=== PATIENT | female | born 1990 | race Caucasian/White ===

== ENCOUNTER 2016-09-09 12:53 | Emergency (ER) | payer OTHER, MEDICAID ==
[2016-09-09 13:06] VITALS: BP 140/86; PULSE 82; RESP 18; TEMP 97.2; O2SAT 97
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
== END 2016-09-09 14:56 | disposition home or self-care (01) ==
DX: S09.90XA Unspecified injury of head, initial encounter (principal); V49.40XA Driver injured in collision with unspecified motor vehicles in traffic accident, initial encounter; Y92.410 Unspecified street and highway as the place of occurrence of the external cause; Y99.8 Other external cause status; Y93.89 Activity, other specified

== ENCOUNTER 2018-05-08 08:21 | Emergency (ER) | payer MEDICAID, OTHER ==
[2018-05-08 08:27] VITALS: BP 106/70
--- NOTE | 2018-05-08 08:49 | EDPHY ---
H & P Stated Complaint: Injury to left knee. Time Seen by Provider: 05/08/18 08:28 HPI/ROS: Chief Complaint: Left knee injury HPI: The patient presents to the ED with complaints of left knee pain following a twisting injury playing Frisbee yesterday. The patient reports painful ambulation. She has tenderness along the medial aspect of her knee. She also has mild swelling involving the knee joint. The patient denies any additional injury to the left hip, ankle or foot. She denies additional acute complaints. REVIEW OF SYSTEMS: Neuro: [no headache, numbness, weakness] Musculoskeletal: [as above] Skin: [no abrasion or lacerations] Source: Patient - Personal History LMP (Females 10-55): 22-28 Days Ago Current Tetanus Diphtheria and Acellular Pertussis (TDAP): Yes - Medical/Surgical History Hx Asthma: No Hx Chronic Respiratory Disease: No Hx Diabetes: No Hx Cardiac Disease: No Hx Renal Disease: No Hx Cirrhosis: No Hx Alcoholism: No Hx HIV/AIDS: No Hx Splenectomy or Spleen Trauma: No Other PMH: neg - Social History Smoking Status: Never smoked - Physical Exam Exam: Left knee: Tenderness to palpation along the medial collateral ligament, joint effusion is in noted. No significant laxity appreciated with anterior posterior drawer testing. Mild pain in the joint with axial rotation of the lower leg. Neuro: Sensation intact to light touch. Normal motor function noted in the left foot. Vascular: 2+ dorsalis pedis and posterior tibial pulses Skin: No abrasion or laceration Constitutional: Initial Vital Signs Temperature (C) 36.6 C 05/08/18 08:24 Heart Rate 89 05/08/18 08:24 Respiratory Rate 16 05/08/18 08:24 Blood Pressure 106/70 05/08/18 08:24 O2 Sat (%) 98 05/08/18 08:24 O2 Delivery Mode Room Air Allergies/Adverse Reactions: amoxicillin Allergy (Verified 09/09/16 13:02) Home Medications: Medication Instructions Recorded [facility] 09/09/16 Medical Decision Making - Diagnostics Imaging Results: Left knee x-ray: Images reviewed by myself, five views reviewed: Impression negative for acute fracture. Joint effusion present ED Course/Re-evaluation: The patient presents to the ED with a left knee injury without evidence of obvious fracture. She does have clinical evidence of a medial collateral ligament injury. She is also informed that we have not fully exclude the possibility of an intra-articular ligamentous or meniscal injury. The patient will be placed in a knee immobilizer. She is advised to weight bear as tolerated. Ice, elevation and NSAIDs are recommended. The patient will follow up with Orthopedic surgery for recheck next week to determine if additional imaging is indicated such as an MRI. Differential Diagnosis: Differential diagnosis considered includes fracture, sprain, dislocation, intra- articular injury Departure - Departure Disposition: Home, Routine, Self-Care Clinical Impression: Left knee sprain Condition: Good Instructions: Knee Sprain (DC) Additional Instructions: 1. Your x-ray demonstrates no evidence of an obvious fracture. 2. You could have a injury involving a ligament or meniscus in her knee. I recommend using the knee immobilizer as needed for comfort this weekend. 3. Ice frequently 20-30 minutes at a time 4 to 5 times a day. 4. Take Ibuprofen or Motrin 600 mg by mouth three times a day. 5. Please follow up with the orthopedic surgeon you have been referred to for a recheck on Friday for any persistent pain, swelling or immobility. Additional imaging may be indicated if you continue to have symptoms. Referrals: Angela Nicolas MD [Medical Doctor] - As per Instructions
== END 2018-05-08 08:59 | disposition home or self-care (01) ==
DX: S83.92XA Sprain of unspecified site of left knee, initial encounter (principal); X50.1XXA Overexertion from prolonged static or awkward postures, initial encounter; Y93.74 Activity, frisbee
CPT/HCPCS: L1830

== ENCOUNTER → 2018-05-25 | Outpatient (CLI) | payer MEDICAID | LOC: FIMAGING 06:52 | PROVIDERS: ATTEND Orthopaedic Surgery | DX: S83.512A Sprain of anterior cruciate ligament of left knee, initial encounter (principal); S83.252A Bucket-handle tear of lateral meniscus, current injury, left knee, initial encounter ==

== ENCOUNTER 2018-09-03 06:40 | Day surgery (SDC) | payer MEDICAID ==
[2018-09-03] MEDS ORDERED: LR 1,000 ML IV SCH (07:00)
[2018-09-03] MEDS ORDERED: ACETAMINOPHEN 500 MG TAB PO ONE (07:00)
[2018-09-03] MEDS ORDERED: ROPIVACAINE 0.2% 80 MG, EPINEPHrine 0.2 MG, KETOROLAC TROMETHAMINE 30 MG in SYRINGE 0 ML IU ONE (07:00)
[2018-09-03] MEDS ORDERED: VANCOMYCIN PHARMACY TO DOSE MISC ONE (07:00)
[2018-09-03] MEDS ORDERED: LR 1,000 ML IV ONE (07:01)
[2018-09-03] MEDS ORDERED: VANCOMYCIN HCL/NORMAL SALINE 250 ML IV ONE (07:30)
[2018-09-03] MEDS ORDERED: BUPIVACAINE 0.5% 30 ML SDV ONE (07:41)
--- NOTE | 2018-09-03 07:57 | PDHPUP ---
History & Physical Update H&P update statement: This history and physical update is based on an assessment of the patient which was completed after admission or registration (within 24 hours), but prior to the surgery/procedure. H&P update: H&P reviewed & patient examined, no change in patient's condition since H&P completed
[2018-09-03] MEDS ORDERED: MIDAZOLAM 2 MG/2 ML VIAL ONE (07:59)
[2018-09-03] MEDS ORDERED: MIDAZOLAM 2 MG/2 ML VIAL IVP ONE (08:02)
--- NOTE | 2018-09-03 08:02 | PDANEPAE ---
ANE History of Present Illness knee ANE Past Medical History - Cardiovascular History Hx Hypertension: No Hx Arrhythmias: No Hx Chest Pain: No Hx Coronary Artery / Peripheral Vascular Disease: No Hx CHF / Valvular Disease: No Hx Palpitations: No Cardiovascular History Comment: MILD IRREG HB - ASYMPTOMATIC - Pulmonary History Hx COPD: No Hx Asthma/Reactive Airway Disease: No Hx Recent Upper Respiratory Infection: No Hx Oxygen in Use at Home: No Hx Sleep Apnea: No Sleep Apnea Screening Result - Last Documented: Negative - Neurologic History Hx Cerebrovascular Accident: No Hx Seizures: No Hx Dementia: No Neurologic History Comment: OCCAS MIGRAINE - Endocrine History Hx Diabetes: No Hypothyroid: No Hyperthyroid: No Obesity: no - Renal History Hx Renal Disorders: No - Liver History Hx Hepatic Disorders: No - Neurological & Psychiatric Hx Hx Neurological and Psychiatric Disorders: No - Cancer History Hx Cancer: No - Congenital Disorder History Hx Congenital Disorders: No - GI History GERD: no Hx Gastrointestinal Disorders: No - Other Health History Other Health History: NEG - Chronic Pain History Chronic Pain: Yes (left knee) - Surgical History Prior Surgeries: 06/01/18 left ACL reconstruction with Lynette OWENS Review of Systems Review of Systems: - Exercise capacity Exercise capacity: >=4 METS METS (RN): 5 METS ANE Patient History - Allergies Allergies/Adverse Reactions: amoxicillin Allergy (Verified 09/02/18 12:13) Penicillins Allergy (Verified 09/02/18 12:13) - Home Medications Home Medications: NK [No Known Home Meds] 05/28/18 [Last Taken Unknown] - NPO status NPO Status: no food or drink >8 hours NPO Since - Liquids (Date): 09/03/18 NPO Since - Liquids (Time): 03:00 NPO Since - Solids (Date): 09/02/18 NPO Since - Solids (Time): 19:00 - Anes Hx Anes Hx: no prior problems - Smoking Hx Smoking Status: Never smoked - Family Anes Hx Family Hx Anesthesia Complications: none ANE Labs/Vital Signs - Vital Signs Blood Pressure: 109/61 Heart Rate: 88 Respiratory Rate: 16 O2 Sat (%): 98 Height: 170.18 cm Weight: 63.503 kg ANE Physical Exam - Airway Mallampati Score: Class 2 Mouth exam: normal dental/mouth exam - Pulmonary Pulmonary: no respiratory distress - Cardiovascular Cardiovascular: regular rate and rhythym - ASA Status ASA Status: I ANE Anesthesia Plan Anesthesia Plan: GA w LMA
[2018-09-03] MEDS ORDERED: fentaNYL 100 MCG/2 ML INJ ONE (08:05)
[2018-09-03] MEDS ORDERED: PROPOFOL 200 MG/20 ML VIAL ONE (08:05)
[2018-09-03] MEDS ORDERED: ONDANSETRON 4 MG/2 ML VIAL ONE (08:06)
[2018-09-03] MEDS ORDERED: LIDOCAINE 2% 5 ML SDV ONE (08:06)
[2018-09-03] MEDS ORDERED: KETOROLAC 30 MG/1 ML SDV ONE (08:06)
[2018-09-03] MEDS ORDERED: DEXAMETHASONE 4 MG/ML VIAL ONE (08:06)
[2018-09-03] MEDS ORDERED: ALBUTEROL 3 ML DEYVIAL IH PRN (08:30)
[2018-09-03] MEDS ORDERED: fentaNYL 100 MCG/2 ML INJ IVP PRN (08:30)
[2018-09-03] MEDS ORDERED: LR 500 ML IV PRN (08:30)
[2018-09-03] MEDS ORDERED: HYDROCODONE/APAP 5/325 TAB PO PRN (08:30)
[2018-09-03] MEDS ORDERED: ONDANSETRON 4 MG/2 ML VIAL IVP PRN (08:30)
[2018-09-03] MEDS ORDERED: NALOXONE HCL 0.4 MG/ML INJ IVP PRN (08:30)
[2018-09-03] MEDS ORDERED: PROMETHAZINE HCL 25 MG/ML INJ IVP PRN (08:30)
--- NOTE | 2018-09-03 08:30 | POSTANESTH ---
Post Anesthetic Evaluation Cardiovascular Status: Normal, Stable Respiratory Status: Normal, Stable Level of Consciousness/Mental Status: Can Participate in Eval Pain Control: Adequate, Prn Tx Ordered Nausea/Vomiting Control: Adequate, Prn Tx Ordered Complications Possibly Related to Anesthesia: None Noted
--- NOTE | 2018-09-03 08:41 | POSTOPPROG ---
Post Op Note Date of Operation: 09/03/18 Surgeon: Aaron Ojeda Anesthesiologist: MD Jerrod Anesthesia: IV Sedation, LMA Pre-op Diagnosis: Left knee arthrofibrosis Post-op Diagnosis: same Procedure: Left knee ELIZABETH Inf/Abcess present in the surg proc area at time of surgery?: No EBL: Minimal
--- NOTE | 2018-09-03 09:09 | GOP ---
[f rep st] OPERATIVE REPORT DATE OF OPERATION: 09/03/2018 SURGEON: Aaron Ojeda MD BATTERY CHARGER: None. PREOPERATIVE DIAGNOSIS: Left knee arthrofibrosis. POSTOPERATIVE DIAGNOSIS: Left knee arthrofibrosis. PROCEDURE PERFORMED: Left knee manipulation under anesthesia. FINDINGS: SPECIMENS: None. INDICATIONS: 28-year-old female who underwent ACL reconstruction with quad tendon autograft and late ral meniscus repair for bucket-handle tear. She is 3 months post procedure, had decreased physical t herapy during the first month over the holidays, and developed arthrofibrosis of her left knee and un able to flex past 90 degrees. Recommended manipulation under anesthesia with possible arthroscopy an d debridement of scar. Risks, benefits, pros, cons were discussed with the patient. She understood and agreed and signed her consent. DESCRIPTION OF PROCEDURE: Patient was seen in the preoperative holding area. Left lower extremity w as identified and marked. H and P and consent were updated noted in the chart. She was then taken t he operating room after a smooth induction of IV sedation, LMA. Time-out was performed. The patient 's name, laterality, antibiotics, and procedure were confirmed. Preoperatively, the patient's left knee was 0 to 90 degrees compared to 0 to 150 on the contralateral side. Careful gentle manipulation of the knee was performed under anesthesia. Audible break up of scar tis vivian was heard in the anterior aspect of the knee. She was able to achieve 145 of flexion. After man ipulation, she is stable to varus and valgus at 0 and 30 degrees. She had negative Anastasia's, anteri or and posterior drawers. She was provided an intra-articular joint cocktail with ropivacaine, epine phrine, and Toradol. She was then safely awakened, extubated, and taken to the recovery room in stab le condition. All critical portions of the procedure performed by myself, Dr. Ojeda. This postoperative note was cr eated by myself and I was immediately available for emergency cross-coverage at all times. IMPLANTS: None. TOURNIQUET: None. /[id number]/MODL
[2018-09-03 09:34] VITALS: BP 109/68
== END 2018-09-03 09:50 | disposition home or self-care (01) ==
LOC: FSGY 06:40
PROVIDERS: ATTEND Orthopaedic Surgery
PROC: 0SSDXZZ Reposition Left Knee Joint, External Approach (ICD-10-PCS; principal; 2018-09-03 08:15)
DX: M24.662 Ankylosis, left knee (principal)
CPT/HCPCS: J0171; J1100; J1885; J2250; J2405; J2704; J2795; J3010; J3370